=== PATIENT | male | born 1995 | race Caucasian/White ===

== ENCOUNTER 2021-09-28 03:57 | Emergency (ER) | payer SELFPAY ==
[2021-09-28] MEDS ORDERED: Ondansetron 4 MG/2 ML SDV IVPUSH ONE (04:05)
[2021-09-28] MEDS ORDERED: Ketorolac 30 MG/ML SDV IVPUSH ONE (04:05)
[2021-09-28] MEDS ORDERED: Sodium Chloride 0.9% 1,000 ML IV ONE (04:05)
[2021-09-28 04:38] LABS: BLOOD UREA NITROGEN,BUN 22 mg/dL (7.0-18.0); CARBON DIOXIDE,CO2 23.3 mmol/L (21.0-32.0); CHLORIDE,CL 105 mmol/L (98-107); ESTIMATED GFR > 60.0 ml/min; GLUCOSE RANDOM 102 mg/dL (74-106); POTASSIUM,K 4.2 mmol/L (3.5-5.1); SODIUM,NA 142 mmol/L (136-148)
== END 2021-09-28 05:33 | disposition home or self-care (01) ==
LOC: MW.ED 03:57
DX: R10.31 Right lower quadrant pain (principal); Z88.1 Allergy status to other antibiotic agents
CPT/HCPCS: 36415; 74176; 80053; 81003; 85025; 96374; 96375; 99284; J1885; J2405; J7030; 99283

== ENCOUNTER 2021-10-02 08:50 | Emergency (ER) | payer SELFPAY ==
[2021-10-02] MEDS ORDERED: Ketorolac 30 MG/ML SDV IM ONE (09:20)
== END 2021-10-02 09:36 | disposition home or self-care (01) ==
LOC: MW.ED 08:50
DX: H60.501 Unspecified acute noninfective otitis externa, right ear (principal); H66.91 Otitis media, unspecified, right ear; Z88.1 Allergy status to other antibiotic agents
CPT/HCPCS: 96372; 99282; J1885; 99283

== ENCOUNTER 2021-10-04 00:50 | Emergency (ER) | payer SELFPAY | END 2021-10-04 01:13 | disposition home or self-care (01) | LOC: MW.ED 00:50 | DX: H60.91 Unspecified otitis externa, right ear (principal); H66.91 Otitis media, unspecified, right ear; S00.411A Abrasion of right ear, initial encounter; Z88.1 Allergy status to other antibiotic agents | CPT/HCPCS: 99282; 99283 ==

== ENCOUNTER 2021-10-04 23:35 | Emergency (ER) | payer SELFPAY ==
[2021-10-04] MEDS ORDERED: Ondansetron 4 MG Tab.DIS PO ONE (23:54)
[2021-10-04] MEDS ORDERED: Morphine 4 MG/ML VIAL IM ONE (23:54)
== END 2021-10-05 00:52 | disposition home or self-care (01) ==
LOC: MW.ED 23:35
DX: H60.91 Unspecified otitis externa, right ear (principal); H66.91 Otitis media, unspecified, right ear; Z88.1 Allergy status to other antibiotic agents; Z86.16 Personal history of COVID-19
CPT/HCPCS: 96372; 99282; A9270; J2270; 99283

== ENCOUNTER 2021-10-06 21:40 | Emergency (ER) | payer SELFPAY ==
[2021-10-06 23:09] LABS: CORONAVIRUS COVID-19 NAA NEGATIVE (NEGATIVE); INFLUENZA A NAA NEGATIVE (NEGATIVE); INFLUENZA B NAA NEGATIVE (NEGATIVE)
[2021-10-07] MEDS ORDERED: Ketorolac 30 MG/ML SDV IM ONE (00:53)
[2021-10-07] MEDS ORDERED: Ondansetron 4 MG Tab.DIS PO ONE (00:54)
== END 2021-10-07 01:05 | disposition home or self-care (01) ==
LOC: MW.ED 21:40
DX: H66.91 Otitis media, unspecified, right ear (principal); Z88.1 Allergy status to other antibiotic agents; Z20.822 Contact with and (suspected) exposure to COVID-19
CPT/HCPCS: 0240U; 96372; 99283; A9270; J1885

== ENCOUNTER 2022-07-05 21:19 | Emergency (ER) | payer BC ==
[2022-07-05] MEDS ORDERED: Ibuprofen 600 MG Tab PO ONE (21:47)
== END 2022-07-05 23:00 | disposition home or self-care (01) ==
LOC: MW.ED 21:19
DX: S90.31XA Contusion of right foot, initial encounter (principal); Z88.8 Allergy status to other drugs, medicaments and biological substances; W18.40XA Slipping, tripping and stumbling without falling, unspecified, initial encounter
CPT/HCPCS: 73610; 73630; 99284; A9270

== ENCOUNTER 2022-07-10 01:13 | Emergency (ER) | payer BC ==
[2022-07-10 03:23] LABS: HEMOGLOBIN A1C 5.4 %
== END 2022-07-10 03:46 | disposition home or self-care (01) ==
LOC: MW.ED 01:13
DX: T33.839A Superficial frostbite of unspecified toe(s), initial encounter (principal); X31.XXXA Exposure to excessive natural cold, initial encounter
CPT/HCPCS: 36415; 83036; 99283

== ENCOUNTER 2022-08-19 14:48 | Emergency (ER) | payer BC ==
[2022-08-19] MEDS ORDERED: Ondansetron 4 MG/2 ML SDV IVPUSH ONE (14:59)
[2022-08-19] MEDS ORDERED: Alum Hydro/Mag Hydro/Simeth XS 15 ML, Lidocaine 2% 5 ML PO ONE ×2 (14:59)
[2022-08-19] MEDS ORDERED: Sodium Chloride 0.9% 1,000 ML IV ONE (14:59)
[2022-08-19 15:36] LABS: CARBON DIOXIDE,CO2 27.9 mmol/L (21.0-32.0); POTASSIUM,K 4.1 mmol/L (3.5-5.1)
== END 2022-08-19 16:27 | disposition home or self-care (01) ==
LOC: MW.ED 14:48
DX: K29.70 Gastritis, unspecified, without bleeding (principal)
CPT/HCPCS: 36415; 80053; 81001; 83690; 85025; 87086; 96361; 96374; 99284; A9270; J2405; J7030